=== PATIENT | male | born 1945 | race Caucasian/White ===

== ENCOUNTER → 2016-11-17 | Outpatient (CLI) | payer BC ==
[~2016-11-17] MED LIST: ASPEC81 PO; BIMA0.038 OPR; CLR10 PO; COEN100C7 PO; CSPOPS OPR; CYAN100T6 PO; NUTR1TAB3 PO; PRAV20TA3 PO; PRLSR20 PO; TERA1CAP63 PO
[2016-11-17 09:38] LABS: HEMATOCRIT 42.6 % (42-52); MEAN CELL VOLUME 83.4 fL (80-100); MEAN CORPUSCULAR HEMOGLOBIN 29.9 pg (25-34); MEAN CORPUSCULAR HGB CONC 35.9 g/dl (32-36); PLATELET COUNT 221 K/uL (130-400); RED BLOOD COUNT 5.11 M/uL (4.7-6.1); WHITE BLOOD COUNT 4.12 K/uL (4.8-10.8)
[2016-11-17 09:51] LABS: ALT/SGPT 45 U/L (12-78); AST/SGOT 33 U/L (15-37); BLOOD UREA NITROGEN 12 mg/dl (7-18); BUN/CREATININE RATIO 11.7 (10-20); CALCIUM 8.6 mg/dl (8.5-10.1); CARBON DIOXIDE 28 mmol/L (21-32); CHLORIDE 108 mmol/L (98-107); CREATININE 0.99 mg/dl (0.60-1.40); GLUCOSE 110 mg/dl (70-99); POTASSIUM 3.9 mmol/L (3.5-5.1); SODIUM 143 mmol/L (136-145)
[2016-11-17 09:57] LABS: ESTIMATED AVERAGE GLUCOSE 111 mg/dl; HA1C FLAG Normal (Normal)
[2016-11-17 10:02] LABS: ALB/GLOB RATIO 1.5 (0.9-2); ALKALINE PHOSPHATASE 61 U/L (45-117); CHOLESTEROL 159 mg/dl (0-200); HDL CHOLESTEROL 53 mg/dl; LDL CHOLESTEROL CALCULATED 56 mg/dl; TRIGLYCERIDES 249 mg/dl (0-150); VERY LOW DENSITY LIPOPROT CALC 50 mg/dl
--- NOTE | 2016-11-22 10:48 | CODING QUERY MEDICAL NECESSITY ---
SUPPORTING DIAGNOSIS NEEDED A supporting diagnosis is required for the test/procedure performed on this patient in order for us to be reimbursed by the patient's insurance. Please provide a supporting diagnosis for the following test/procedure listed below next to the test name along with your signature. *If there is no additional diagnosis for this patient that would support the following test/procedure please document that below next to the test/procedure. Test(s)/Procedure(s) that require a supporting diagnosis: * VITAMIN B-12 LEVEL DIAGNOSIS: * DOS: 11/17/16 Provider Signature: Date: Thank you Jessica Overton [facility] Information Management Once completed, please kindly fax back to [phone] For questions please call [phone]
--- NOTE | 2016-11-22 10:50 | CODING QUERY MEDICAL NECESSITY ---
SUPPORTING DIAGNOSIS NEEDED A supporting diagnosis is required for the test/procedure performed on this patient in order for us to be reimbursed by the patient's insurance. Please provide a supporting diagnosis for the following test/procedure listed below next to the test name along with your signature. *If there is no additional diagnosis for this patient that would support the following test/procedure please document that below next to the test/procedure. Test(s)/Procedure(s) that require a supporting diagnosis: * PSA DIAGNOSIS: * DOS: 11/17/16 Provider Signature: Date: Thank you Jessica Overton [employer] Information Management Once completed, please kindly fax back to [phone] For questions please call [phone]
== END | disposition home or self-care (01) ==
LOC: C.LAB 08:20
PROVIDERS: ATTEND Family Medicine
DX: R73.09 Other abnormal glucose (principal); C67.9 Malignant neoplasm of bladder, unspecified; D56.9 Thalassemia, unspecified

== ENCOUNTER → 2016-11-23 | Outpatient (CLI) | payer BC | END | disposition home or self-care (01) | LOC: C.PATHSPEC 17:28 | PROVIDERS: ATTEND Urology | DX: C67.9 Malignant neoplasm of bladder, unspecified (principal) ==

== ENCOUNTER → 2017-10-29 | Outpatient (CLI) | payer BC ==
[2017-10-29 09:41] LABS: BASO % 0.8 %; BASO ABS # 0.04 K/uL (0-0.2); EOS % 4.2 %; EOS ABS # 0.21 K/uL (0-0.5); HEMATOCRIT 42.3 % (42-52); LYMPH % 19.1 %; LYMPH ABS # 0.96 K/uL (1.2-3.4); MEAN CELL VOLUME 84.6 fL (80-100); MEAN CORPUSCULAR HGB CONC 35.5 g/dl (32-36); MONO % 11.6 %; MONO ABS # 0.58 K/uL (0.11-0.59); NEUT % 64.3 %; NEUT ABS # 3.23 K/uL (1.4-6.5); PLATELET COUNT 217 K/uL (130-400); RED CELL DISTRIBUTION WIDTH CV 12.9 % (11.5-14.5); RED CELL DISTRIBUTION WIDTH SD 39.4 fL (36.4-46.3); WHITE BLOOD COUNT 5.02 K/uL (4.8-10.8)
[2017-10-29 10:00] LABS: ALBUMIN 3.9 gm/dl (3.4-5.0); ALT/SGPT 39 U/L (12-78); AST/SGOT 26 U/L (15-37); BLOOD UREA NITROGEN 14 mg/dl (7-18); CARBON DIOXIDE 29 mmol/L (21-32); CHOLESTEROL 161 mg/dl (0-200); GLUCOSE 101 mg/dl (70-99); HEMOGLOBIN A1C 5.5 % (4.5-5.6); POTASSIUM 3.9 mmol/L (3.5-5.1); SODIUM 140 mmol/L (136-145)
[2017-10-29 10:09] LABS: ALKALINE PHOSPHATASE 56 U/L (45-117); LDL CHOLESTEROL CALCULATED 75 mg/dl; TOTAL PROTEIN 6.7 gm/dl (6.4-8.2); TRANSFERRIN 195 mg/dl (200-360); URIC ACID 6.1 mg/dl (2.6-7.2)
== END | disposition home or self-care (01) ==
LOC: C.LAB 07:13
PROVIDERS: ATTEND Family Medicine
DX: E88.81 Metabolic syndrome and other insulin resistance (principal); E55.9 Vitamin D deficiency, unspecified; D51.9 Vitamin B12 deficiency anemia, unspecified; E78.9 Disorder of lipoprotein metabolism, unspecified; R53.83 Other fatigue

== ENCOUNTER → 2017-12-10 | Outpatient (CLI) | payer BC | END | disposition home or self-care (01) | LOC: C.LAB 07:38 | PROVIDERS: ATTEND Urology | DX: R97.20 Elevated prostate specific antigen [PSA] (principal) ==